=== PATIENT | male | born 1940 | race American Indian/Alaskan Native ===

== ENCOUNTER 2017-02-25 14:37 | Emergency (ER) | payer MEDICARE, BC ==
[2017-02-25 14:38] VITALS: BMI 23.6
[2017-02-25] MEDS ORDERED: Hydrocortisone 2.5% Rectal Cream(30 gm) PR STA (15:25)
--- NOTE | 2017-02-25 15:33 | C.PDOC ---
History Of Present Illness 76-year-old male presents to the emergency department with complaints of 2 day duration of bleeding hemorrhoids. Patient denies any rectal pain, admits he often has to strain with bowel movements. Patient also admits he used to take MiraLax, but discontinued it approx one month ago. Patient denies chest pain, shortness of breath, weakness,any other associated symptoms. Time Seen by Provider: 02/25/17 14:53 Chief Complaint (Nursing): GI Problem History Per: Patient History/Exam Limitations: no limitations Onset/Duration Of Symptoms: Days Current Symptoms Are (Timing): Still Present Number Of Bleeding Episodes: One Amount of Blood Loss: Small Severity: Mild Past Medical History Reviewed: Historical Data, Nursing Documentation, Vital Signs Vital Signs: Last Vital Signs Temp 97.8 F 02/25/17 16:59 Pulse 76 02/25/17 16:59 Resp 16 02/25/17 16:59 BP 175/80 H 02/25/17 16:59 Pulse Ox 96 02/25/17 18:24 - Medical History PMH: CHF, Diabetes, HTN, End Stage Renal Disease (DIALYSIS M-W-F), Chronic Kidney Disease - [facility] Procedures CONTRAST AORTOGRAM (05/11/13) CONTRAST RENAL ARTERIOGR (05/11/13) CORONAR ARTERIOGR-2 CATH (05/11/13) HEMODIALYSIS (05/11/13) LEFT HEART CARDIAC CATH (05/11/13) LT HEART ANGIOCARDIOGRAM (05/11/13) Family History: States: No Known Family Hx - Social History Hx Tobacco Use: No Hx Alcohol Use: No Hx Substance Use: No - Immunization History Hx Tetanus Toxoid Vaccination: No Hx Influenza Vaccination: No Hx Pneumococcal Vaccination: No Review Of Systems Except As Marked, All Systems Reviewed And Found Negative. Constitutional: Negative for: Fever Cardiovascular: Negative for: Chest Pain Respiratory: Negative for: Shortness of Breath Gastrointestinal: Positive for: Other (hemorrhoid). Negative for: Nausea, Vomiting, Abdominal Pain, Rectal Pain Musculoskeletal: Negative for: Back Pain Neurological: Negative for: Weakness, Numbness, Headache, Dizziness Physical Exam - Physical Exam Appears: Well, Non-toxic, No Acute Distress Skin: Warm, Dry, No Rash Head: Normacephalic Eye(s): bilateral: Normal Inspection Oral Mucosa: Moist Cardiovascular: Rhythm Regular Respiratory: Normal Breath Sounds, No Rales, No Rhonchi, No Wheezing Gastrointestinal/Abdominal: Normal Exam, Bowel Sounds, Soft, No Tenderness Rectal: No Tenderness, Other (2cm hemorrhoid at 9 o'clock. No thrombosis. Dried blood in area but without active bleeding. Voucher Examiner: Lavern RN) Extremity: Normal ROM Neurological/Psych: Oriented x3 ED Course And Treatment O2 Sat by Pulse Oximetry: 96 (on RA) Pulse Ox Interpretation: Normal Progress Note: Patient treated with Colace and Anusol, and Rxs for same given. Patient instructed on doing sitz baths as well. He was instructed to follow up with general surgeon within 1 week, and understands he should return to ED if symptoms worsen. Reevaluation Time: 16:30 Reassessment Condition: Improved Disposition Counseled Patient/Family Regarding: Studies Performed, Diagnosis, Need For Followup - Disposition Referrals: Cecily Deras MD [Staff Provider] - Cisco Damico MD [Staff Provider] - Disposition: HOME/ ROUTINE Disposition Time: 16:30 Condition: STABLE Prescriptions: Docusate [Colace] 100 mg PO DAILY #30 cap Hydrocortisone 2.5% (Rectal) [Anusol-HC] 1 appl RC BID #1 tube Instructions: Hemorrhoids (ED), Sitz Bath (GEN) Forms: [employer] (Croatian) Print Language: LUXEMBOURGER - Clinical Impression Clinical Impression: Hemorrhoids - Scribe Statement The provider has reviewed the documentation as recorded by the Scribe (Jeannie Arias) All medical record entries made by the Scribe were at my direction and personally dictated by me. I have reviewed the chart and agree that the record accurately reflects my personal performance of the history, physical exam, medical decision making, and the department course for this patient. I have also personally directed, reviewed, and agree with the discharge instructions and disposition.
[2017-02-25 17:01] VITALS: BP 175/80; PULSE 76; RESP 16; TEMP 97.8
[2017-02-25 18:11] VITALS: O2SAT 96
== END 2017-02-25 17:01 | disposition home or self-care (01) ==
LOC: C.ER 14:37
DX: K64.9 Unspecified hemorrhoids (principal); I12.0 Hypertensive chronic kidney disease with stage 5 chronic kidney disease or end stage renal disease; N18.6 End stage renal disease; Z99.2 Dependence on renal dialysis; I50.9 Heart failure, unspecified

== ENCOUNTER 2017-03-26 08:18 | Day surgery (SDC) | payer MEDICARE, BC ==
[2017-03-17 12:44] VITALS: BMI 28.2
[2017-03-26] MEDS ORDERED: ceFAZolin IV 2 gm in Dextrose 2 GM/50 ML BAG IVPB ONE (09:47)
[2017-03-26] MEDS ORDERED: Bupivacaine-Epi 0.5%-1:200,000 PF Inj IJ ONE (09:48)
[2017-03-26] MEDS ORDERED: Midazolam 2 MG/2 ML VIAL ONE (09:58)
[2017-03-26] MEDS ORDERED: Propofol 10 mg/ml Inj (20 ML) ONE (09:58)
[2017-03-26] MEDS ORDERED: Succinylcholine Chloride 20 mg/ml Syr (5 ml) IV ONE (09:59)
--- NOTE | 2017-03-26 10:50 | PCM.SURG1 ---
Surgeon's Initial Post Op Note - Surgeon's Notes Surgeon: Mookie Clothespin Machine Operator: [id number] Type of Anesthesia: General Endo, Local Pre-Operative Diagnosis: Internal Hemorrhoids Operative Findings: see op note Post-Operative Diagnosis: Internal Hemorrhoids Operation Performed: Hemorrhoid stapling, PPH Specimen/Specimens Removed: hemorrhoids Estimated Blood Loss: EBL {In ML}: 5 Blood Products Given: N/A Drains Used: No Drains Post-Op Condition: Good Date of Surgery/Procedure: 03/26/17 Time of Surgery/Procedure: 09:50
[2017-03-26] MEDS ORDERED: Oxycodone/Acetaminophen 5/325 mg Tab PO ONE ×2 (10:54→12:30)
[2017-03-26 12:38] VITALS: RESP 16; O2SAT 95
[2017-03-26 13:57] VITALS: BP 166/80; PULSE 83; TEMP 97.6
--- NOTE | 2017-03-26 23:41 | OP ---
PROCEDURE DATE: 03/26/2017 PREOPERATIVE DIAGNOSES: Prolapsed anal mucosa and external hemorrhoids. PROCEDURE PERFORMED: PPH (procedure for hemorrhoids and prolapse). FINDINGS: There is a very redundant anal mucosa and half of it was protruding out through the anus. Extensive external hemorrhoids were noted with some areas of inflammatory reaction. DESCRIPTION OF PROCEDURE: Under general anesthesia, the patient was prepared and draped in the usual sterile fashion. He was placed in a Jackknife position. The buttocks were taped outwards. The area was prepped. Marcaine 0.5% was given as a pudendal block. The anal sphincter was then dilated to about 4 fingerbreadths. A circular anal dilator was then inserted and was secured in place. A pursestring suture was applied about 3 cm above the dentate line and was tightened around the open anvil of the external hemorrhoidal stapler. The stapler was then closed and fired and about 1 minute was allowed to elapse before opening it again. The stapler was then removed together with a portion of the anal mucosa. Area was inspected for any bleeding. A bleeding point was noted around the 4 o'clock position while the patient in a Jackknife position. This was electrocauterized. No other areas of bleeding were noted. The staple line was then covered with a piece of Surgicel and procedure was then terminated. The estimated blood loss for the procedure approximately about 20 mL. The patient tolerated the procedure quite well, left the operating room in good condition. Cisco Damico MD
== END 2017-03-26 13:49 | disposition home or self-care (01) ==
LOC: C.SDS 08:18
PROVIDERS: ATTEND Surgery
DX: K64.2 Third degree hemorrhoids (principal); K62.6 Ulcer of anus and rectum; K64.8 Other hemorrhoids; K64.4 Residual hemorrhoidal skin tags
CPT/HCPCS: 36415; 46947; 82948; 84132; 88304; J0690; J1170; J2250; J2704; J3010